=== PATIENT | female | born 1985 ===

== ENCOUNTER → 2024-09-24 | Day surgery (SDC) | payer OTHER ==
[2024-09-09 09:47] LABS: BASO % 0.6 % (0.1-1.2); EOS # 0.12 (0.04-0.54); EOS % 2.3 % (0.7-7.0); HEMATOCRIT 32.3 % (34.1-44.9); HEMOGLOBIN 10.4 g/dL (11.2-15.7); LYMPH # 2.19 (1.18-3.74); LYMPH % 41.3 % (19.3-53.1); MEAN CORPUSCULAR HEMOGLOBIN 26.4 pg (25.6-32.2); MONO # 0.41 (0.24-0.82); MONO % 7.7 % (4.7-12.5); NEUT # 2.54 (1.56-6.13); NEUT % 47.9 % (34.0-71.1); PLATELET COUNT 288 K/uL (163-369); RED BLOOD COUNT 3.94 M/uL (3.93-5.22); RED CELL DISTRIBUTION WIDTH 14.6 % (11.6-14.4)
[2024-09-09 09:51] VITALS: BP 126/83
[2024-09-09 09:51] LABS: PH,URINE 6.5 (5.0-8.0); URINE APPEARANCE Clear; URINE BILIRRUBIN Negative (NEGATIVE); URINE BLOOD Negative; URINE COLOR Yellow; URINE GLUCOSE Negative (NEGATIVE); URINE KETONE Negative (NEGATIVE); URINE LEUKOCYTE Negative; URINE NITRATE Negative; URINE PROTEIN Negative (NEGATIVE); URINE UROBILINOGEN 0.2 E.U./dl
[2024-09-09 09:53] LABS: URINE BACTERIA 737.9 uL (0.0-1933); URINE EPITHELIAL CELLS 13.7 uL (0.0-38.8); URINE WBC 5.5 uL (0.0-23.2)
[2024-09-09 10:15] LABS: INR 1.07; PARTIAL THROMBOPLASTIN TIME 26.3 SECONDS (22.0-34.0); PROTHROMBIN TIME 11.6 SECONDS (9.0-11.5)
[2024-09-09 10:50] LABS: ALBUMIN 3.7 gm/dL (3.4-5.0); BILIRUBIN TOTAL 0.49 mg/dL (0.3-1.2); CALCIUM 9.1 mg/dL (8.5-10.1); CREATININE SERUM 0.74 mg/dL (0.55-1.02); GFR 87.37; GLOBULINA 3.4 G/DL (2.4-3.5); POTASSIUM 4.3 mEq/L (3.5-5.1); TOTAL PROTEIN 7.1 gm/dL (6.4-8.2)
[2024-09-09 12:57] LABS: RH POSITIVE
[~2024-09-24] VITALS: Ht 172.7 cm; Wt 88.5 kg
[~2024-09-24] MED LIST: POVIDONE-IODINE 118 ML BOTT TOP ONE; RINGERS SOLUTION,LACTATED 1,000 ML IV SCH
== END | disposition home or self-care (01) ==
LOC: ADM 09-09 08:45 → CIR.AMB 09-17 08:45
PROVIDERS: ATTEND Student in an Organized Health Care Education/Training Program
DX: D25.0 Submucous leiomyoma of uterus (principal); D25.1 Intramural leiomyoma of uterus; N93.8 Other specified abnormal uterine and vaginal bleeding